=== PATIENT | female | born 1960 | race Caucasian/White ===

== ENCOUNTER 2020-12-03 09:07 | Day surgery (SDC) | payer OTHER, SELFPAY ==
[2020-11-29 10:13] VITALS: BMI 19.2
[2020-11-29 13:11] VITALS: BMI 21.4
[2020-12-03 09:32] VITALS: BP 138/87; PULSE 76; RESP 16; TEMP 36.1; O2SAT 98
--- NOTE | 2020-12-03 09:34 | P.CONAN_ITS ---
[facility] Past Medical History Medical History Basal cell carcinoma of skin of nose History of seizure Low back pain RLS (restless legs syndrome) Surgical History Surgical History Hx of colonoscopy Social History Social History Patient Tobacco Use Status: Former Tobacco user Quit Date: Are you DNR?: No Advance Directives: No Advance Directives Information Provided: No Advance Directives on File: No Meds Allergies Allergy/AdvReac Type Severity Reaction Status Date / Time seafood Allergy Severe Seizure Verified 11/29/20 13:08 latex Allergy Intermediate Blister, Verified 11/29/20 13:08 rash Home Medications Medication Instructions Recorded Confirmed Last Taken Type Glucosamine Chondroitin 11/29/20 Unknown History ferrous sulfate [Iron (ferrous 325 mg PO DAILY 11/29/20 11/29/20 Unknown History sulfate)] vitamin B complex tab 11/29/20 11/29/20 Unknown History Exam Exam Date and Time: December 03, 2020 0934 Height,Weight and Vital Signs: Height 5 ft 4 in Weight 56.699 kg Airway Mallampati Class: II TM Dist: >3cm Heart: RRR Lungs: CTA
--- NOTE | 2020-12-03 10:10 | MHC.SHP ---
Pre-Procedural Eval Section A Date of Service: 12/03/20 The patient is an INPATIENT: No Changes since office visit: No Cold of Flu in the past 2 weeks, No New Medical Problems, No Changes in Medication and No Patient answered all questions The History & Physical has been completed within 30 days and I have reviewed it.: Yes Section B Chief Complaint: left lower quadrant pain Allergies: Allergies Allergy/AdvReac Type Severity Reaction Status Date / Time seafood Allergy Severe Seizure Verified 11/29/20 13:08 latex Allergy Intermediate Blister, Verified 11/29/20 13:08 rash Plan I have reviewed the history and physical and performed a pertinent physical examination on my patient. No changes have occurred unless specified.
[2020-12-03 10:47] VITALS: BP 106/68; PULSE 66; RESP 14; TEMP 36.2; O2SAT 99
--- NOTE | 2020-12-03 10:48 | PM.OP ---
Brief Operative Note Date of Service: 12/03/20 Pre-op diagnosis: llq pain Post-op diagnosis: same (normal) Surgeon: Judd Estrada Anesthesia: MAC Was an Doctor Of Veterinary Medicine used for this Procedure?: No Estimated blood loss (mL): 2 Pathology: other (sigmoid biopsies) Condition: stable Disposition: PACU
[2020-12-03 11:02] VITALS: BP 104/71; PULSE 66; RESP 18; O2SAT 100
[2020-12-03 11:17] VITALS: BP 113/75; PULSE 60; RESP 18; TEMP 36.3; O2SAT 98
--- NOTE | 2020-12-03 11:21 | HO.POSTANES ---
Post Anesthesia Evaluation Post Anesthesia Evaluation Vital Signs: Vital Signs Temp Pulse Resp BP Pulse Ox 12/03/20 11:02 66 18 104/71 100 12/03/20 10:47 97.2 F 66 14 106/68 99 12/03/20 09:32 97.0 F 76 16 138/87 98 Anesthesia: Monitored Mental Status: Awake Pain Control: Satisfactory Nausea/Vomiting: None Hydration: Adequate Anesthesia-Related Issues: No Anes. Related Issues
--- NOTE | 2020-12-03 21:12 | OP_ITS ---
SURGEON: Judd Estrada MD INDICATIONS: Left lower quadrant pain. PREOPERATIVE DIAGNOSIS: POSTOPERATIVE DIAGNOSIS: PROCEDURE PERFORMED: Colonoscopy to the terminal ileum with biopsy. ESTIMATED BLOOD LOSS: COMPLICATIONS: ANESTHESIA: ASSISTANTS: SPECIMENS: MEDICATIONS: Monitored anesthesia care. DESCRIPTION OF PROCEDURE: History and physical performed. The risks and benefits of the procedure were explained to the patient. Informed consent was obtained. The patient was placed in left lateral decubitus position. A digital rectal exam was performed and was found to be normal. The Olympus pediatric video colonoscope was introduced into the rectum and advanced to the cecum without difficulty. The cecum was identified by transillumination, palpation, and identification of ileocecal valve. Examination was performed. The scope was removed. She tolerated the procedure well and was taken to recovery area in stable condition. FINDINGS: The terminal ileum was examined and appeared normal. The visualized colonic mucosa was normal without evidence of masses or ulcers. The descending colon mucosa appeared normal as did the sigmoid and the remainder of the colon. There was some liquid stool in the sigmoid, which was suctioned and limited the examination sensitivity of detection of small polyps. Random sigmoid biopsies were obtained to rule out microscopic colitis. Retroflexed examination was normal. IMPRESSION: Normal colonoscopy. RECOMMENDATIONS: 1. Follow up the biopsy results. 2. Screening colonoscopy is recommended every 10 years for average risk individuals. MD LYLA Frenandez/EMILY / [id number]
== END 2020-12-03 12:27 | disposition home or self-care (01) ==
PROVIDERS: PCP Internal Medicine; Visit Provider Internal Medicine Gastroenterology
PROC: 0DJD8ZZ Inspection of Lower Intestinal Tract, Via Natural or Artificial Opening Endoscopic (ICD-10-PCS; CPT 45378; principal; 2020-12-03 10:20)
DX: R10.32 Left lower quadrant pain (principal); G25.81 Restless legs syndrome; Z85.828 Personal history of other malignant neoplasm of skin; Z87.891 Personal history of nicotine dependence; Z79.899 Other long term (current) drug therapy; Z91.040 Latex allergy status
CPT/HCPCS: 45380; 88305